=== PATIENT | male | born 1960 | race Caucasian/White ===

== ENCOUNTER 2018-02-27 13:28 | Inpatient (IN) ==
[~2018-02-27 13:28] MED LIST: Calcium Chloride Inj 1 GM/10 ML Syringe IV.PUSH ONE; DOPAMINE 400 MG/250 ML IV.CONT ONE; Norepinephrine Inj 4 MG/4 ML Ampul IV.CONT ONE; Sodium Bicarbonate 8.4% Inj 50 MEQ/50 ML Syringe IV.PUSH ONE
[2018-02-27] MEDS: Norepinephrine Inj 4 MG in Sodium Chlor 0.9% Inj 246 ML IV.SIG PRN ×2 (13:50→23:18)
[2018-02-27 14:09] LABS: Baso # (Auto) 0.1 th/mm3 (0.0-0.2); Baso % (Auto) 0.2 % (0.0-2.0); Eos # (Auto) 0.1 th/mm3 (0.0-0.4); Eos % (Auto) 0.5 % (0.0-4.0); Hematocrit 40.7 % (39.0-51.0); Hemoglobin 11.6 gm/dL (13.0-17.0); Lymph # (Auto) 9.2 th/mm3 (1.0-4.8); Lymph % (Auto) 30.2 % (9.0-44.0); Mean Corpuscular Hemoglobin 28.4 pg (27.0-34.0); Mean Corpuscular Volume 99.5 fL (80.0-100.0); Mono # (Auto) 0.5 th/mm3 (0.0-0.9); Mono % (Auto) 1.8 % (0.0-8.0); Neut # (Auto) 20.6 th/mm3 (1.8-7.7); Neut % (Auto) 67.3 % (16.0-70.0); Platelet Count 304 th/mm3 (150-450); Red Blood Count 4.09 mil/mm3 (4.50-5.90); Red Cell Distribution Width 19.2 % (11.6-17.2); White Blood Count 30.6 th/mm3 (4.0-11.0)
[2018-02-27 14:15] LABS: Mean Corpuscular HGB Conc 28.6 % (32.0-36.0)
[2018-02-27] MEDS ORDERED: Sod Chloride 0.9% Inj 1,000 ML IV.SIG SCH (14:15)
[2018-02-27] MEDS ORDERED: Vancomycin Inj 1 GM/200 ML PIGGYBACK IV.SIG ONE (14:15)
[2018-02-27] MEDS ORDERED: Piperacil/Tazo 4.5 GM Premix 4.5 GM/100 ML BAG IV.SIG ONE (14:15)
[2018-02-27 14:25] LABS: Activated Partial Thrombo Time 32.7 sec (24.3-30.1); INR 1.2 Ratio; Prothrombin Time 11.8 sec (9.8-11.6)
[2018-02-27 14:49] LABS: Lymphocytes 21 % (9-44); Metamyelocytes 3 % (0-1); Monocytes 1 % (0-8); Myelocytes 6 % (0-0); Tallied Nucleated RBC 1 (0-0)
[2018-02-27 14:51] LABS: Alanine Aminotransferase 908 U/L (12-78); Albumin 2.1 g/dL (3.4-5.0); Alkaline Phosphatase 199 U/L (45-117); Anion Gap 25 meq/L (5-15); Aspartate Aminotransferase 1555 U/L (15-37); Blood Urea Nitrogen 18 mg/dL (7-18); Calcium 8.7 mg/dL (8.5-10.1); Carbon Dioxide 17.8 meq/L (21.0-32.0); Chloride 103 meq/L (98-107); Creatine Kinase 132 U/L (39-308); Glomerular Filtration Rate 74 mL/min (>89); Glucose,Random 249 mg/dL (74-106); Lipase 176 U/L (73-393); Magnesium 2.5 mg/dL (1.5-2.5); Phosphorus 9.9 mg/dL (2.5-4.9); Sodium 146 meq/L (136-145); Total Protein 6.4 g/dL (6.4-8.2); Troponin I 0.27 ng/mL (0.02-0.05)
[2018-02-27 14:52] LABS: Potassium 4.9 meq/L (3.5-5.1)
[2018-02-27 14:57] LABS: Ovalocytes 1+; Platelet Estimate Normal (Normal); Platelet Morphology Normal (Normal); Spherocytes Occ
--- NOTE | 2018-02-27 14:58 | ED ---
HPI General Chief complaint: Cardiac Arrest/CPR Stated complaint: cardiac Time Seen by Provider: 02/27/18 14:12 Source: patient Mode of arrival: EMS Limitations: altered mental status History of Present Illness HPI narrative: Patient is a 57 year old male with history of quadriplegia, brought in by EMS in cardiac arrest. Patient has a tracheostomy tube in place. He is unresponsive, unable to provide history. EMS states he was [facility] the [facility]. Related Data Home Medications Medication Instructions Recorded Confirmed Unable to Obtain Home Meds 02/27/18 02/27/18 Allergies Allergy/AdvReac Type Severity Reaction Status Date / Time No Allergy Information Allergy Verified 02/27/18 14:07 Available Review of Systems ROS Unobtainable ROS Unobtainable: unobtainable due to mental condition PMFSH Medical History Medical History Anxiety (Acute) Dysphagia (Acute) Heartburn (Acute) Hypokalemia (Acute) Hypotension (Acute) Hypothyroidism (Acute) Osteomyelitis (Acute) Pneumonia (Acute) Pressure ulcer (Acute) Sepsis (Acute) Suprapubic catheter (Acute) Upper respiratory infection (Acute) Surgical History Surgical History History of colostomy (Acute) History of tracheostomy (Acute) PEG (percutaneous endoscopic gastrostomy) status (Acute) Social History Social History Smoking Status: Unknown if ever smoked How Often Do You Have a Drink Containing Alcohol: Unable to Obtain Recent Travel in [facility] within the Last 8 Weeks: No Recent Out of Country Travel within the Last 8 Weeks: No Exam Narrative Exam Narrative: GENERAL: Unresponsive SKIN: Large sacral decubitus ulcer HEAD: Atraumatic. Normocephalic. EYES: Pupils equal and round. No scleral icterus. ENT: No nasal bleeding or discharge. Mucous membranes pink and moist. NECK: Trachea midline. No JVD. CARDIOVASCULAR: Regular rate and rhythm. No murmur appreciated. RESPIRATORY: Breathing assisted through tracheostomy. Large amount of thick pus in mouth and tracheostomy tube. GASTROINTESTINAL: Abdomen soft, non-tender, nondistended. Colostomy present. MUSCULOSKELETAL: No obvious deformities. No clubbing. No cyanosis. No edema. NEUROLOGICAL: Unresponsive, does not move his extremities. Procedures Central Line Placement Right Femoral: Time Out Performed: Yes Patient Placed on Monitor/Pulse Ox: Yes Prep: mask and gloves Ultrasound Used for Placement: Yes Central Line Lumen Inserted: triple Post Procedure: sutured in place Patient Tolerated Procedure: no complications Course Initial Documented Vital Signs Pulse Rate 0 L 02/27/18 13:29 Last Documented Vital Signs Temperature 96.6 F L 02/27/18 15:20 Pulse Rate 75 02/27/18 17:00 Respiratory Rate 15 02/27/18 17:00 Blood Pressure 137/104 H 02/27/18 17:00 Pulse Oximetry 100 02/27/18 17:00 Critical Care Time Critical Care Time: Yes Total Critical Care Time: 40 Attestation: Aggregate critical care time was 40 minutes. Time to perform other separately billable procedures was not included in the critical care time. My time did not include minutes spent treating any other patients simultaneously or on activities that did not directly contribute to the patient's treatment. The services I provided to this patient were to treat and/or prevent clinically significant deterioration that could result in: Serious illness or I provided critical care services requiring my management, as noted below: Chart data review, documentation time, medication orders and management, vital sign assessments/reviewing monitor data, ordering and reviewing lab tests, ordering and interpreting/reviewing x-rays and diagnostic studies, care of the patient and discussion of the patient with the admitting physicians. Medical Decision Making MDM Narrative Medical decision making narrative: Patient is a 57 year old male who is brought in by EMS in cardiac arrest. Central line placed in right femoral vein. Large amount of thick secretions suctioned from the airway with improvement of O2 saturation. Given IVF, started on Levophed. Given Vancomycin and Zosyn. Patient has shock liver. WBC count 30. Lactic acid 16.4. CXR shows right sided pulmonary edema. Admitted for further manamgement. Medical Screen Exam Complete: Yes Emergency Medical Condition: Yes Differential Diagnosis Differential Diagnosis: Sepsis versus MS versus hypoxia versus UTI versus pneumonia Medical Records Medical records reviewed: Yes I reviewed the patient's medical records. Lab Data Lab results reviewed: Yes I reviewed the patient's lab results. Result diagrams: 02/27/18 13:44 02/27/18 13:44 Lab Results 02/27/18 02/27/18 02/27/18 Range/Units 13:44 13:44 13:44 WBC 30.6 H (4.0-11.0) th/mm3 RBC 4.09 L (4.50-5.90) mil/mm3 Hgb 11.6 L (13.0-17.0) gm/dL Hct 40.7 (39.0-51.0) % MCV 99.5 (80.0-100.0) fL MCH 28.4 (27.0-34.0) pg MCHC 28.6 L (32.0-36.0) % RDW 19.2 H (11.6-17.2) % Plt Count 304 (150-450) th/mm3 MPV 8.0 (7.0-11.0) fL Prelim Diff (Auto) Slide review pending Neut % (Auto) 67.3 (16.0-70.0) % Lymph % (Auto) 30.2 (9.0-44.0) % Harvey % (Auto) 1.8 (0.0-8.0) % Eos % (Auto) 0.5 (0.0-4.0) % Baso % (Auto) 0.2 (0.0-2.0) % Neut # (Auto) 20.6 H (1.8-7.7) th/mm3 Lymph # (Auto) 9.2 H (1.0-4.8) th/mm3 Harvey # (Auto) 0.5 (0.0-0.9) th/mm3 Eos # (Auto) 0.1 (0.0-0.4) th/mm3 Baso # (Auto) 0.1 (0.0-0.2) th/mm3 WBC Differential Manual diff final Seg Neuts % (Manual) 57 (16-70) % Band Neuts % (Manual) 12 H (0-6) % Lymphocytes % (Manual) 21 (9-44) % Monocytes % (Manual) 1 (0-8) % Metamyelocytes % (Man) 3 H (0-1) % Myelocytes % (Man) 6 H (0-0) % Abs Neuts (Manual) 23.9 H (1.8-7.7) th/mm3 Nucleated RBCs/100 WBC 1 H (0-0) /100 WBC Differential Comment . Platelet Estimate Normal (Normal) Platelet Morphology Normal (Normal) Spherocytes Occ H (None) Ovalocytes 1+ H (None) PT 11.8 H (9.8-11.6) sec INR 1.2 Ratio APTT 32.7 H (24.3-30.1) sec Patient Temperature O2 Saturation (90-100) % ABG pH (7.380-7.420) ABG pCO2 (38-42) mmHg ABG pO2 (61-120) mmHg ABG HCO3 (22-26) mmol/L ABG O2 Content (12.0-20.0) Vol % ABG Base Excess (-2-2) mmol/L ABG Methemoglobin (0-2) % Hemoglobin (12.0-16.0) G/DL Carboxyhemoglobin (0-4) % O2 Delivery Device Vent Setting Inspired O2 % Critical Value Sodium 146 H (136-145) meq/L Potassium 4.9 (3.5-5.1) meq/L Chloride 103 (98-107) meq/L Carbon Dioxide 17.8 L (21.0-32.0) meq/L Anion Gap 25 H (5-15) meq/L BUN 18 (7-18) mg/dL Creatinine 1.03 (0.60-1.30) mg/dL Estimated GFR 74 L (>89) mL/min POC Glucose (68-110) mg/dl Random Glucose 249 H (74-106) mg/dL Lactic Acid (0.4-2.0) mmol/L Calcium 8.7 (8.5-10.1) mg/dL Phosphorus 9.9 H (2.5-4.9) mg/dL Magnesium 2.5 (1.5-2.5) mg/dL Total Bilirubin 0.5 (0.2-1.0) mg/dL AST 1555 H (15-37) U/L ALT 908 H (12-78) U/L Alkaline Phosphatase 199 H (45-117) U/L Total Creatine Kinase 132 (39-308) U/L CK-MB (CK-2) 3.8 H (0.5-3.6) ng/mL Troponin I 0.27 H (0.02-0.05) ng/mL Total Protein 6.4 (6.4-8.2) g/dL Albumin 2.1 L (3.4-5.0) g/dL Lipase 176 (73-393) U/L Urine Color (Yellw/Straw) Urine Clarity (Clear) Urine pH (5.0-8.5) Ur Specific [place] (1.002-1.035) Urine Protein (Neg-Trace) mg/dL Urine Glucose (UA) (Negative) mg/dL Urine Ketones (Negative) mg/dL Urine Occult Blood (Negative) Urine Nitrate (Negative) Urine Bilirubin (Negative) Urine Urobilinogen (Less than 2) mg/dL Ur Leukocyte Esterase (Negative) Urine RBC (0-3) /hpf Urine WBC (0-5) /hpf Urine WBC Clumps (None) Ur Squamous Epith Cells (0-5) /hpf Urine Bacteria (None) /hpf Hyaline Casts (0-3) /lpf Urine Mucus (Occasional) /lpf 02/27/18 02/27/18 02/27/18 Range/Units 13:57 14:23 16:55 WBC (4.0-11.0) th/mm3 RBC (4.50-5.90) mil/mm3 Hgb (13.0-17.0) gm/dL Hct (39.0-51.0) % MCV (80.0-100.0) fL MCH (27.0-34.0) pg MCHC (32.0-36.0) % RDW (11.6-17.2) % Plt Count (150-450) th/mm3 MPV (7.0-11.0) fL Prelim Diff (Auto) Neut % (Auto) (16.0-70.0) % Lymph % (Auto) (9.0-44.0) % Harvey % (Auto) (0.0-8.0) % Eos % (Auto) (0.0-4.0) % Baso % (Auto) (0.0-2.0) % Neut # (Auto) (1.8-7.7) th/mm3 Lymph # (Auto) (1.0-4.8) th/mm3 Harvey # (Auto) (0.0-0.9) th/mm3 Eos # (Auto) (0.0-0.4) th/mm3 Baso # (Auto) (0.0-0.2) th/mm3 WBC Differential Seg Neuts % (Manual) (16-70) % Band Neuts % (Manual) (0-6) % Lymphocytes % (Manual) (9-44) % Monocytes % (Manual) (0-8) % Metamyelocytes % (Man) (0-1) % Myelocytes % (Man) (0-0) % Abs Neuts (Manual) (1.8-7.7) th/mm3 Nucleated RBCs/100 WBC (0-0) /100 WBC Differential Comment Platelet Estimate (Normal) Platelet Morphology (Normal) Spherocytes (None) Ovalocytes (None) PT (9.8-11.6) sec INR Ratio APTT (24.3-30.1) sec Patient Temperature O2 Saturation (90-100) % ABG pH (7.380-7.420) ABG pCO2 (38-42) mmHg ABG pO2 (61-120) mmHg ABG HCO3 (22-26) mmol/L ABG O2 Content (12.0-20.0) Vol % ABG Base Excess (-2-2) mmol/L ABG Methemoglobin (0-2) % Hemoglobin (12.0-16.0) G/DL Carboxyhemoglobin (0-4) % O2 Delivery Device Vent Setting Inspired O2 % Critical Value Sodium (136-145) meq/L Potassium (3.5-5.1) meq/L Chloride (98-107) meq/L Carbon Dioxide (21.0-32.0) meq/L Anion Gap (5-15) meq/L BUN (7-18) mg/dL Creatinine (0.60-1.30) mg/dL Estimated GFR (>89) mL/min POC Glucose 256 H (68-110) mg/dl Random Glucose (74-106) mg/dL Lactic Acid 16.4 H* (0.4-2.0) mmol/L Calcium (8.5-10.1) mg/dL Phosphorus (2.5-4.9) mg/dL Magnesium (1.5-2.5) mg/dL Total Bilirubin (0.2-1.0) mg/dL AST (15-37) U/L ALT (12-78) U/L Alkaline Phosphatase (45-117) U/L Total Creatine Kinase (39-308) U/L CK-MB (CK-2) (0.5-3.6) ng/mL Troponin I (0.02-0.05) ng/mL Total Protein (6.4-8.2) g/dL Albumin (3.4-5.0) g/dL Lipase (73-393) U/L Urine Color [place] H (Yellw/Straw) Urine Clarity Cloudy H (Clear) Urine pH 7.5 (5.0-8.5) Ur Specific [place] 1.010 (1.002-1.035) Urine Protein 300 or greater H (Neg-Trace) mg/dL Urine Glucose (UA) Negative (Negative) mg/dL Urine Ketones Negative (Negative) mg/dL Urine Occult Blood Large H (Negative) Urine Nitrate Positive H (Negative) Urine Bilirubin Negative (Negative) Urine Urobilinogen 0.2 (Less than 2) mg/dL Ur Leukocyte Esterase Large H (Negative) Urine RBC (0-3) /hpf Urine WBC (0-5) /hpf Urine WBC Clumps Many H (None) Ur Squamous Epith Cells 148 (0-5) /hpf Urine Bacteria Many H (None) /hpf Hyaline Casts 116 (0-3) /lpf Urine Mucus Many H (Occasional) /lpf 02/27/18 Range/Units 17:07 WBC (4.0-11.0) th/mm3 RBC (4.50-5.90) mil/mm3 Hgb (13.0-17.0) gm/dL Hct (39.0-51.0) % MCV (80.0-100.0) fL MCH (27.0-34.0) pg MCHC (32.0-36.0) % RDW (11.6-17.2) % Plt Count (150-450) th/mm3 MPV (7.0-11.0) fL Prelim Diff (Auto) Neut % (Auto) (16.0-70.0) % Lymph % (Auto) (9.0-44.0) % Harvey % (Auto) (0.0-8.0) % Eos % (Auto) (0.0-4.0) % Baso % (Auto) (0.0-2.0) % Neut # (Auto) (1.8-7.7) th/mm3 Lymph # (Auto) (1.0-4.8) th/mm3 Harvey # (Auto) (0.0-0.9) th/mm3 Eos # (Auto) (0.0-0.4) th/mm3 Baso # (Auto) (0.0-0.2) th/mm3 WBC Differential Seg Neuts % (Manual) (16-70) % Band Neuts % (Manual) (0-6) % Lymphocytes % (Manual) (9-44) % Monocytes % (Manual) (0-8) % Metamyelocytes % (Man) (0-1) % Myelocytes % (Man) (0-0) % Abs Neuts (Manual) (1.8-7.7) th/mm3 Nucleated RBCs/100 WBC (0-0) /100 WBC Differential Comment Platelet Estimate (Normal) Platelet Morphology (Normal) Spherocytes (None) Ovalocytes (None) PT (9.8-11.6) sec INR Ratio APTT (24.3-30.1) sec Patient Temperature 98.6 O2 Saturation 98 (90-100) % ABG pH 7.24 L* (7.380-7.420) ABG pCO2 52 H* (38-42) mmHg ABG pO2 439 H (61-120) mmHg ABG HCO3 21 L (22-26) mmol/L ABG O2 Content 18.7 (12.0-20.0) Vol % ABG Base Excess -4.9 L (-2-2) mmol/L ABG Methemoglobin 0.6 (0-2) % Hemoglobin 12.8 (12.0-16.0) G/DL Carboxyhemoglobin 1.6 (0-4) % O2 Delivery Device Vent Vent Setting Ac/15/500/10/100 Inspired O2 100 % Critical Value Yes Sodium (136-145) meq/L Potassium (3.5-5.1) meq/L Chloride (98-107) meq/L Carbon Dioxide (21.0-32.0) meq/L Anion Gap (5-15) meq/L BUN (7-18) mg/dL Creatinine (0.60-1.30) mg/dL Estimated GFR (>89) mL/min POC Glucose (68-110) mg/dl Random Glucose (74-106) mg/dL Lactic Acid (0.4-2.0) mmol/L Calcium (8.5-10.1) mg/dL Phosphorus (2.5-4.9) mg/dL Magnesium (1.5-2.5) mg/dL Total Bilirubin (0.2-1.0) mg/dL AST (15-37) U/L ALT (12-78) U/L Alkaline Phosphatase (45-117) U/L Total Creatine Kinase (39-308) U/L CK-MB (CK-2) (0.5-3.6) ng/mL Troponin I (0.02-0.05) ng/mL Total Protein (6.4-8.2) g/dL Albumin (3.4-5.0) g/dL Lipase (73-393) U/L Urine Color (Yellw/Straw) Urine Clarity (Clear) Urine pH (5.0-8.5) Ur Specific [place] (1.002-1.035) Urine Protein (Neg-Trace) mg/dL Urine Glucose (UA) (Negative) mg/dL Urine Ketones (Negative) mg/dL Urine Occult Blood (Negative) Urine Nitrate (Negative) Urine Bilirubin (Negative) Urine Urobilinogen (Less than 2) mg/dL Ur Leukocyte Esterase (Negative) Urine RBC (0-3) /hpf Urine WBC (0-5) /hpf Urine WBC Clumps (None) Ur Squamous Epith Cells (0-5) /hpf Urine Bacteria (None) /hpf Hyaline Casts (0-3) /lpf Urine Mucus (Occasional) /lpf Imaging Data Radiologist's impression: Chest X-Ray 02/27/18 13:43 CONCLUSION: Possible pulmonary edema. Discharge Plan Discharge Disposition Patient Disposition: 30 Still Patient Discharge Condition Condition: Critical Discharge Details Diagnosis: Cardiac arrest, Acute respiratory failure, Sepsis Physicians Team ED Provider: Rae Fischer Primary Care Provider: Deric Varela Attending Provider: Arturo Mariano Other Providers: Crystal Chanel Status ED Status: Admitted Patient
[2018-02-27] MEDS ORDERED: Vancomycin Inj 1,000 MG in Sodium Chlor 0.9% Inj 250 ML IV.SIG ONE (15:00)
--- NOTE | 2018-02-27 15:02 | XR ---
EXAM DATE: 02/27/2018 2:57 PM EDT AGE/SEX: 57 years / Male INDICATIONS: Fever. CLINICAL DATA: This is the patient's initial encounter. Patient reports that signs and symptoms have been present for 1 day and indicates a pain score of Nonresponsive. MEDICAL/SURGICAL HISTORY: Non-responsive. Non-responsive. COMPARISON: No prior exams available for comparison. FINDINGS: Tracheostomy tube is present in satisfactory position. Left IJ [id number] is present with tip over lapping the expected region of the SVC. Hazy opacity is seen diffusely involving the right lung may represent pulmonary edema. The left lung is grossly clear. Slight prominence of the mediastinal shado w may be technical. CONCLUSION: Possible pulmonary edema. Electronically signed by: Klever Scanlon MD 02/27/2018 3:00 PM EDT
[2018-02-27 15:06] LABS: Creatine Kinase MB 3.8 ng/mL (0.5-3.6)
[2018-02-27] MEDS ORDERED: Vancomycin Consult Pharmacy OTHER PRN (17:09)
[2018-02-27 17:20] LABS: ABG Base Excess -4.9 mmol/L (-2-2); ABG PCO2 52 mmHg (38-42); ABG PO2 439 mmHg (61-120)
[2018-02-27] MEDS ORDERED: Magnesium Oxide 400 MG Tablet PO PRN (17:27)
[2018-02-27] MEDS ORDERED: Potassium Phosphate Inj 30 MMOL in Sodium Chlor 0.9% Inj 250 ML IV.SIG PRN (17:27)
[2018-02-27] MEDS ORDERED: Potassium Chlor 40 mEq Premix 40 MEQ/100 ML PIGGYBACK IV.SIG PRN (17:27)
[2018-02-27] MEDS ORDERED: Potassium Phosphate 500 MG Soluble Tablet PO PRN ×2 (17:27)
[2018-02-27] MEDS ORDERED: Potassium Chloride 25 MEQ Effervescent Tablet PO PRN (17:27)
[2018-02-27] MEDS ORDERED: Magnesium Sulfate Inj 4 GM in Sodium Chlor 0.9% Inj 92 ML IV.SIG PRN (17:27)
[2018-02-27] MEDS ORDERED: Potassium Chlor 20 mEq Premix 20 MEQ/100 ML PIGGYBACK IV.SIG PRN ×2 (17:27)
[2018-02-27] MEDS ORDERED: Sodium Phosphate Inj 30 MMOL in Sodium Chlor 0.9% Inj 250 ML IV.SIG PRN (17:27)
[2018-02-27] MEDS ORDERED: Magnesium Sulfate Inj 2 GM in Sodium Chlor 0.9% Inj 96 ML IV.SIG PRN (17:27)
--- NOTE | 2018-02-27 17:30 | P.HPCC ---
History of Present Illness Service: Critical Care Medicine Primary Care Physician: Deric Varela DO History of Present Illness: This is a 57-year-old male with a history of C4 quadriplegia who sustained out of hospital cardiac arrest in his longterm facility. ROSC was obtained and he was brought in where he had a second cardiac arrest when he arrived in the emergency department. Again ROSC was obtained. Patient received no sedating medication and no neuromuscular blockade, and in the emergency department his pupils are fixed and dilated he see his unresponsive. Initially he was on norepinephrine for shock, but is now off his medication. He has a lactate of 16. He has a white count of 30,000. He has evidence of shock liver , acute kidney injury. He has significant pyuria. He also has significant unstageable/stage IV decubitus ulcer on his sacrum. He has significant purulent secretions in his tracheostomy tube. We have tried multiple times to reach his daughter and medical decision maker, but neither of us nor his longterm facility have been able to reach her. No additional information is available from the patient. Review systems is unobtainable. Inpatient Certification: I certify that the inpatient services were ordered in accordance with Medicare regulations governing the order. This includes certification that hospital inpatient services are reasonable and necessary and in the case of services not specified as inpatient-only under 42 CFR 419.22(n), that they are appropriately provided as inpatient services in accordance to with the 2-midnight benchmark under 43 CFR 412.3(e) Estimated Total Length of Stay (Days): 7 Plans for Post Hospital Care: Not yet determined Review of Systems unobtainable due to mental condition, unobtainable due to mental status PMFSH - History History Provided By: Medical Record - Medical / Surgical Hx Neg / Unobtainable Medical Problems Denied: Unable to Obtain Surgical History: Unable to Obtain - Medical History Medical History: Medical History (Last Reviewed 02/27/18 @ 17:17 by Rae Fischer MD) Anxiety Dysphagia Heartburn Hypokalemia Hypotension Hypothyroidism Osteomyelitis Pneumonia Pressure ulcer Sepsis Suprapubic catheter Upper respiratory infection - Surgical History Surgical History: Surgical History (Last Reviewed 02/27/18 @ 17:17 by Rae Fischer MD) History of colostomy History of tracheostomy PEG (percutaneous endoscopic gastrostomy) status - Tobacco History Smoking Status: Unknown if ever smoked - Alcohol History How Often Do You Have a Drink Containing Alcohol: Unable to Obtain - Travel History Recent Travel in the [place] Within the Last 8 Weeks: No Recent Travel Out of the Country Within the Last 8 Weeks: No - Immunization History Tetanus Immunization: Unsure Hx Influenza Vaccine This Season: Unable to Assess Medications and Allergies Active Medications: Active Medications Albuterol (Duoneb Neb (Prn)) 1 ampul NEB Q2HR NEB PRN PRN Reason: WHEEZING Albuterol (Duoneb Neb (Eduardo)) 1 ampul NEB Q6HR NEB EDUARDO Chlorhexidine Gluconate (Peridex 0.12% Oral Kit) 15 ml OROPHARYNG BID@0800, 2000 EDUARDO Chlorhexidine Gluconate (Chlorhexidine 2% Cloth) 3 pack TOPICAL DAILY@0400 EDUARDO Stop: 03/05/18 03:59 Chlorhexidine Gluconate (Chlorhexidine 2% Cloth) 3 pack TOPICAL DAILY@0400 PRN PRN Reason: Extra cloth needed Stop: 03/05/18 03:59 Famotidine (Pepcid Pf Inj) 20 mg IV.PUSH Q12HR EDUARDO Norepinephrine Bitartrate 4 mg (/ Sodium Chloride) 250 mls @ 7.5 mls/hr IV.SIG TITRATE PRN; Protocol PRN Reason: Per Protocol Last Titration: 02/27/18 16:00 Dose: 8 mcg/min, 30 mls/hr Sodium Chloride (Ns Inj) 1,000 mls @ 0 mls/hr IV.SIG BOLUS EDUARDO Last Admin: 02/27/18 15:18 Dose: 1,000 mls/hr Piperacillin/Tazobactam/Dextrose (Zosyn 4.5 Gm Premix) 4.5 gm in 100 mls @ 200 mls/hr IV.SIG Q6H EDUARDO Magnesium Sulfate Inj 2 gm/ (Sodium Chloride) 100 mls @ 50 mls/hr IV.SIG UNSCH PRN PRN Reason: For Magnesium 1.2 - 1.6 mg/dL Potassium Chloride (Kcl 40 Meq Premix Inj) 40 meq in 100 mls @ 25 mls/hr IV.SIG Q2H PRN PRN Reason: For Potassium 2.8 - 3.2 mEq/L Potassium Chloride (Kcl 20 Meq Premix Inj) 20 meq in 100 mls @ 50 mls/hr IV.SIG Q2H PRN PRN Reason: For Potassium 3.3 - 3.5 mEq/L Potassium Chloride (Kcl 40 Meq Premix Inj) 40 meq in 100 mls @ 25 mls/hr IV.SIG UNSCH PRN PRN Reason: For Potassium 3.3 - 3.5 mEq/L Potassium Phosphate 30 mmol/ (Sodium Chloride) 260 mls @ 42 mls/hr IV.SIG UNSCH PRN PRN Reason: SEE LABEL COMMENTS Sodium Phosphate 30 mmol/ (Sodium Chloride) 260 mls @ 42 mls/hr IV.SIG UNSCH PRN PRN Reason: For Phosphorus < 2.5 mg/dL Magnesium Sulfate Inj 4 gm/ (Sodium Chloride) 100 mls @ 50 mls/hr IV.SIG UNSCH PRN PRN Reason: For Magnesium 0.9 - 1.1 mg/dL Potassium Chloride (Kcl 20 Meq Premix Inj) 20 meq in 100 mls @ 50 mls/hr IV.SIG Q2H PRN PRN Reason: For Potassium 2.8 - 3.2 mEq/L Magnesium Oxide (Mag-Ox) 800 mg PO UNSCH PRN PRN Reason: For Magnesium 1.2 - 1.6 mg/dL Ondansetron HCl (Zofran Inj) 4 mg IV.PUSH Q6H PRN PRN Reason: NAUSEA OR VOMITING Pharmacy Profile Note (Vancomycin Consult Pharmacy) 1 each OTHER UNSCH PRN PRN Reason: Pharmacy to dose Potassium Bicarb/Potassium Chloride (K-Lyte Cl Eff) 50 meq PO UNSCH PRN PRN Reason: For Potassium 3.3 - 3.5 mEq/L Potassium Phosphate (K-Phos Original) 2,000 mg PO Q4H PRN PRN Reason: Phosphorus Less Than 2.5 mg/dL Potassium Phosphate (K-Phos Original) 2,000 mg PO UNSCH PRN PRN Reason: SEE LABEL COMMENTS Sodium Chloride (Ns Flush) 2 ml IV.FLUSH UNSCH PRN PRN Reason: FLUSH AFTER USING IV ACCESS Terbutaline Sulfate (Brethine Inj) 1 mg SQ UNSCH PRN PRN Reason: For Extravasation Allergies Allergy/AdvReac Type Severity Reaction Status Date / Time No Allergy Information Allergy Verified 02/27/18 14:07 Available Home Medications Medication Instructions Recorded Confirmed Type Unable to Obtain Home Meds 02/27/18 02/27/18 History Results - Labs CBC & Chem 7: 02/27/18 13:44 02/27/18 13:44 Labs: Short CBC 02/27/18 Range/Units 13:44 WBC 30.6 H (4.0-11.0) th/mm3 Hgb 11.6 L (13.0-17.0) gm/dL Hct 40.7 (39.0-51.0) % Plt Count 304 (150-450) th/mm3 BMP 02/27/18 13:44 Sodium 146 H Potassium 4.9 Chloride 103 Carbon Dioxide 17.8 L BUN 18 Creatinine 1.03 Calcium 8.7 Cardiac Enzymes 02/27/18 Range/Units 13:44 Total Creatine Kinase 132 (39-308) U/L CK-MB (CK-2) 3.8 H (0.5-3.6) ng/mL Troponin I 0.27 H (0.02-0.05) ng/mL Liver Function 02/27/18 Range/Units 13:44 Total Bilirubin 0.5 (0.2-1.0) mg/dL AST 1555 H (15-37) U/L ALT 908 H (12-78) U/L Alkaline Phosphatase 199 H (45-117) U/L Albumin 2.1 L (3.4-5.0) g/dL - Imaging Impressions Chest X-Ray 02/27/18 13:43 CONCLUSION: Possible pulmonary edema. Exam Vital signs: Vital Signs 02/27/18 13:29 02/27/18 13:33 02/27/18 13:45 Temperature Pulse Rate 0 L 64 53 L Respiratory Rate Blood Pressure 92/40 L Pulse Oximetry 98 02/27/18 13:48 02/27/18 13:58 02/27/18 14:00 Temperature Pulse Rate 53 L 52 L 50 L Respiratory Rate 20 24 Blood Pressure 92/46 L 105/55 L 108/51 L Pulse Oximetry 100 100 02/27/18 14:15 02/27/18 14:20 02/27/18 14:41 Temperature Pulse Rate 48 L 65 68 Respiratory Rate 16 14 15 Blood Pressure 111/54 L 101/50 L 111/56 L Pulse Oximetry 98 100 100 02/27/18 15:20 02/27/18 15:30 02/27/18 15:45 Temperature 35.9 C L Pulse Rate 70 70 75 Respiratory Rate 16 15 15 Blood Pressure 120/74 129/69 150/70 H Pulse Oximetry 100 100 100 02/27/18 16:00 02/27/18 17:00 Temperature Pulse Rate 75 75 Respiratory Rate 15 15 Blood Pressure 137/79 137/104 H Pulse Oximetry 100 100 Intake & Output 02/26/18 02/27/18 02/27/18 18:59 06:59 18:59 Intake Total 100 / 100 Balance 100 / 100 Weight 65.029 kg Intake: IV 100 / 100 Zosyn 4.5 GM Premix 4.5 gm In 100 / 100 100 ml @ 200 mls/hr IV.SIG ONCE ONE Rx#:[id number] Narrative: GENERAL: Frail and cachectic middle-aged appearing male with contractures of both upper and lower extremities, lying in bed, unresponsive. HEENT: Normocephalic. Atraumatic. Pupils 5 mm, bilaterally equal, fixed, dilated, nonreactive. Mucous membranes are moist NECK: Trachea is midline. There is no JVD. There is a tracheostomy tube in place. CHEST: PRVC mode of ventilation. Equal chest rise. Significant thickened purulent appearing secretions. CARDIOVASCULAR: Tachycardic rate, regular rhythm. Appears sinus by telemetry. ABDOMEN: Soft, nontender, nondistended. No guarding. PEG tube in place. Suprapubic catheter in place. Purulent drainage out of suprapubic catheter drainage bag. MUSCULOSKELETAL: Pulses 2+. No peripheral edema. Contractures of all extremities. NEUROLOGICAL: GCS 3. RASS -5. Pupils as above. Negative cough. Negative gag. Negative corneals. Septic Shock Reassessment Septic shock perfusion: reassessment completed Caprini VTE Risk Assessment Caprini VTE Risk Assessment: Moderate/High Risk (score >= 2) Caprini Risk Assessment Model: Point Value = 1 Point Value = 2 Point Value = 3 Point Value = 5 Age 41-60 Minor surgery BMI > 25 kg/m2 Swollen legs Varicose veins or History of unexplained or recurrent spontaneous Oral contraceptives or hormone replacement Sepsis (< 1 month) Serious lung disease, including pneumonia (< 1 month) Abnormal pulmonary function Acute myocardial infarction Congestive heart failure (< 1 month) History of inflammatory bowel disease Medical patient at bed rest Age 61-74 Arthroscopic surgery Major open surgery (> 45 min) Laparoscopic surgery (> 45 min) Malignancy Confined to bed (> 72 hours) Immobilizing plaster cast Central venous access Age >= 75 History of VTE Family history of VTE Factor V Leiden Prothrombin [id number] Lupus anticoagulant Anticardiolipin antibodies Elevated serum homocysteine Heparin-induced thrombocytopenia Other congenital or acquired thrombophilia Stroke (< 1 month) Elective arthroplasty Hip, pelvis, or leg fracture Acute spinal cord injury (< 1 month) Prophylaxis Regimen: Total Risk Factor Score Risk Level Prophylaxis Regimen 0-1 Low Early ambulation 2 Moderate Order ONE of the following: *Sequential Compression Device (SCD) *Heparin 5000 units SQ BID 3-4 Higher Order ONE of the following medications: *Heparin 5000 units SQ TID *Enoxaparin/Lovenox 40 mg SQ daily (WT < 150 kg, CrCl > 30 mL/min) *Enoxaparin/Lovenox 30 mg SQ daily (WT < 150 kg, CrCl > 10-29 mL/min) *Enoxaparin/Lovenox 30 mg SQ BID (WT < 150 kg, CrCl > 30 mL/min) AND/OR *Sequential Compression Device (SCD) 5 or more Highest Order ONE of the following medications: *Heparin 5000 units SQ TID (Preferred with Epidurals) *Enoxaparin/Lovenox 40 mg SQ daily (WT < 150 kg, CrCl > 30 mL/min) *Enoxaparin/Lovenox 30 mg SQ daily (WT < 150 kg, CrCl > 10-29 mL/min) *Enoxaparin/Lovenox 30 mg SQ BID (WT < 150 kg, CrCl > 30 mL/min) AND *Sequential Compression Device (SCD) Assessment and Plan - Assessment and Plan Plan: Assessment: 57-year-old male with prior C4 quadriplegia who presents out of prolonged out of hospital cardiac arrest with no likely anoxic brain injury. Given the patient's multiple acute and chronic medical problems, combined with the fact the patient clinically appears quite septic and the patient had a significantly prolonged downtime, induced hypothermia is relatively contraindicated and I do not think it will improve the patient's overall survivability or neurologic improvement, and certainly comes with significant risk of worsening his comorbid organ failure and hemodynamics. We have tried unsuccessfully to reach his medical decision makers and family. We will continue trying, but the interim he will remain a full code. We will obtain noncontrast head CT as well as CT chest abdomen pelvis to evaluate for an etiology of his cardiac arrest, however at present it appears that septic shock from either pulmonary, urine, or multiple wound infection sources could be a clinical source of his septic shock. He remains very critically ill and given his presentation, unlikely to survive or have a meaningful recovery. I have consulted palliative care to have their team assist in our ongoing search contact family as well as goals of care discussion. Plan by systems: Neurologic: Anoxic brain injury Hypoxic ischemic encephalopathy Prior C4 quadriplegia Frequent neurochecks Avoid long-acting sedatives Stat CT head Hold any blood thinners until after CT head Respiratory: Acute hypoxic and hypercarbic respiratory failure Chronic tracheostomy Vent bundle Head of bed elevated Wean FiO2 for goal SPO2 greater than 90% No weaning of mechanical ventilation until neurologic exam improves Nebs Send sputum sample Antibiotics as below Cardiovascular: Out of hospital cardiac arrest Elevated troponins Septic shock Trend troponins Levophed for goal map greater than 65 Likely type II NSTEMI secondary to demand ischemia and from direct myocardial injury from CPR. Unlikely to be acute coronary syndrome Given the multifactorial etiology of cardiac arrest and current organ failure as well as prolonged downtime, not a candidate for hypothermia protocol Renal: Acute kidney injury Unknown baseline Suprapubic catheter in place Trend renal function on daily BMP -- Strict I/Os FEN/GI: Severe acute protein calorie malnutrition Shock liver Acute intravascular volume depletion N.p.o. while in shock Daily CMP Trend LFTs Maintenance fluids Heme/ID: Septic shock Likely sources could include: Healthcare associated pneumonia, healthcare associated urinary tract infection with indwelling suprapubic catheter, multiple wound infections including significant stage IV/unstageable decubitus ulcer on the sacrum Vancomycin with pharmacy dosing Zosyn Panculture CT chest, abdomen, pelvis with IV contrast further evaluate for source Endocrine: -- SSI Prophylaxis: GI Prophylaxis Pepcid DVT Prophylaxis -- SCDs Hold pharmacologic DVT prophylaxis until noncontrasted head CT Lines: 02/27 right femoral triple-lumen catheter placed in the emergency department. Dispo: Admit ICU. Critically ill. Very poor prognosis overall. This patient remains critically ill with one or more organ systems which are or may become a threat to life. I have spent in excess of 57 minutes discontinuously in the care and management of this patient. This time is exclusive of procedures, and includes, but is not limited to, evaluation of the patient, review of the medical record, discussions with family, consultants, nursing staff, or respiratory therapy, and documentation in the medical record.
[2018-02-27 17:59] LABS: Bacteria,Urine Many /hpf; Hyaline Casts,Urine 116 /lpf (0-3); Mucus,Urine Many /lpf (Occasional); Squamous Epithelial Cell,Urine 148 /hpf (0-5)
[2018-02-27 18:19] LABS: Clarity,Urine Cloudy (Clear); PH,Urine 7.5 (5.0-8.5)
[2018-02-27 18:20] LABS: Bilirubin,Urine Negative (Negative); Glucose,Urine (UA) Negative (Negative); Leukocyte Esterase,Urine Large (Negative); Nitrite,Urine Positive (Negative); Urobilinogen,Urine 0.2 mg/dL (Less than 2)
[2018-02-27 18:21] LABS: Color,Urine Pink (Yellw/Straw)
--- NOTE | 2018-02-27 20:17 | CT ---
EXAM DATE: 02/27/2018 8:04 PM EDT AGE/SEX: 57 years / Male INDICATIONS: Altered mental status. CLINICAL DATA: This is the patient's initial encounter. Patient reports that signs and symptoms have been present for 1 day and indicates a pain score of Nonresponsive. MEDICAL/SURGICAL HISTORY: Non-responsive. Colostomy. RADIATION DOSE: 64.63 CTDI (mGy) COMPARISON: No prior exams available for comparison. TECHNIQUE: CT of the head without contrast. Using automated exposure control and adjustment of the mA and/or kV according to patient size, radiation dose was kept as low as reasonably achievable to ob tain optimal diagnostic quality images. DICOM format image data is available electronically for revi ew and comparison. FINDINGS: The examination is very abnormal. There is subarachnoid hemorrhage extending from perimesencephalic c isterns down towards the prepeduncular cistern and cephaladly to bilateral temporal lobes. There is e xtensive cerebral swelling diffusely with loss of kendrick-white differentiation characteristic of diffus e axonal injury or possibly diffuse extensive anoxic insult to the brain. The perimesencephalic ciste rns are obliterated and there is significant mass effect on the ventricles indicating downward transt entorial herniation. CONCLUSION: 1. Very abnormal exam with subarachnoid hemorrhage extensive cerebral swelling and downward transten torial herniation possibility of extensive anoxic insult to the brain or diffuse axonal injury should both be entertained. Findings were discussed with Dr. Mariano at the time of this dictation. . Electronically signed by: Klever Scanlon MD 02/27/2018 8:16 PM EDT
[2018-02-27] MEDS: Piperacil/Tazo 4.5 GM Premix 4.5 GM/100 ML BAG IV.SIG SCH (21:47)
[2018-02-27] MEDS: Famotidine PF Inj 20 MG/2 ML Vial IV.PUSH SCH (21:47)
[2018-02-27] MEDS: Chlorhexidine 0.12% Oral Kit 15 ML UDC OROPHARYNG SCH (21:47)
[2018-02-28] MEDS: Oral Hygiene Kit OROPHARYNG SCH ×4 (00:04→16:51)
[2018-02-28] MEDS: Piperacil/Tazo 4.5 GM Premix 4.5 GM/100 ML BAG IV.SIG SCH ×2 (02:45→08:37)
[2018-02-28] MEDS: Chlorhexidine Gluconate 2% 1 Pack (2 Cloths) TOPICAL SCH (03:19)
[2018-02-28] MEDS ORDERED: Vancomycin Inj 750 MG in Sodium Chlor 0.9% Inj 250 ML IV.SIG SCH (04:00)
[2018-02-28] MEDS ORDERED: Chlorhexidine Gluconate 2% 1 Pack (2 Cloths) TOPICAL PRN (04:00)
[2018-02-28 05:07] LABS: Alanine Aminotransferase 978 U/L (12-78); Albumin 2.2 g/dL (3.4-5.0); Alkaline Phosphatase 163 U/L (45-117); Anion Gap 13 meq/L (5-15); Aspartate Aminotransferase 883 U/L (15-37); Blood Urea Nitrogen 27 mg/dL (7-18); Calcium 8.3 mg/dL (8.5-10.1); Carbon Dioxide 28.5 meq/L (21.0-32.0); Chloride 109 meq/L (98-107); Glomerular Filtration Rate Greater Than 89 mL/min (>89); Glucose,Random 147 mg/dL (74-106); Magnesium 1.7 mg/dL (1.5-2.5); Phosphorus 2.4 mg/dL (2.5-4.9); Potassium 3.2 meq/L (3.5-5.1); Sodium 150 meq/L (136-145); Total Protein 6.2 g/dL (6.4-8.2)
[2018-02-28 05:15] LABS: Troponin I 6.12 ng/mL (0.02-0.05)
--- NOTE | 2018-02-28 05:58 | XR ---
EXAM DATE: 02/28/2018 5:48 AM EDT AGE/SEX: 57 years / Male INDICATIONS: Shortness of breath. CLINICAL DATA: This is the patient's subsequent encounter. Patient reports that signs and symptoms h ave been present for 2 days and indicates a pain score of Nonresponsive. MEDICAL/SURGICAL HISTORY: Non-responsive. Non-responsive. COMPARISON: [facility] – [place], CHEST 1V SINGLE AP, 02/27/2018. . FINDINGS: Portable AP view of the chest demonstrates a normal-sized cardiac silhouette. Lungs are underinflated and patient is mildly rotated. Tracheostomy and left chest wall [id number] remain present. Multip le EKG lines overlie the patient. Lungs are underinflated with mild bibasilar opacity, stable from th e prior study. Slight blunting the left costophrenic sulcus is stable. No pneumothorax is identified. CONCLUSION: Stable mild bibasilar airspace opacity which could represent subsegmental atelectasis or consolidatio n. Suspected trace left pleural fluid. Electronically signed by: Jacob Keith MD 02/28/2018 5:57 AM EDT
[2018-02-28 06:15] LABS: ABG Base Excess -0.3 mmol/L (-2-2); ABG PCO2 21 mmHg (38-42); ABG PO2 74 mmHG (61-120)
[2018-02-28] MEDS: Potassium Chlor 40 mEq Premix 40 MEQ/100 ML PIGGYBACK IV.SIG PRN ×2 (06:34→12:17)
[2018-02-28 07:18] LABS: Activated Partial Thrombo Time 21.2 sec (24.3-30.1); INR 1.2 Ratio; Prothrombin Time 11.9 sec (9.8-11.6)
[2018-02-28 07:32] LABS: Baso # (Auto) 0.1 th/mm3 (0.0-0.2); Baso % (Auto) 0.3 % (0.0-2.0); Eos # (Auto) 0.1 th/mm3 (0.0-0.4); Eos % (Auto) 0.3 % (0.0-4.0); Hematocrit 44.6 % (39.0-51.0); Hemoglobin 14.2 gm/dL (13.0-17.0); Lymph # (Auto) 3.3 th/mm3 (1.0-4.8); Lymph % (Auto) 11.4 % (9.0-44.0); Mean Corpuscular HGB Conc 31.9 % (32.0-36.0); Mean Corpuscular Hemoglobin 28.7 pg (27.0-34.0); Mean Corpuscular Volume 89.8 fL (80.0-100.0); Mean Platelet Volume 7.9 fL (7.0-11.0); Mono # (Auto) 1.2 th/mm3 (0.0-0.9); Mono % (Auto) 4.2 % (0.0-8.0); Neut # (Auto) 24.6 th/mm3 (1.8-7.7); Neut % (Auto) 83.8 % (16.0-70.0); Platelet Count 319 th/mm3 (150-450); Red Blood Count 4.97 mil/mm3 (4.50-5.90); Red Cell Distribution Width 19.5 % (11.6-17.2); White Blood Count 29.3 th/mm3 (4.0-11.0)
[2018-02-28 07:42] VITALS: RESP 12
[2018-02-28] MEDS: Famotidine PF Inj 20 MG/2 ML Vial IV.PUSH SCH ×2 (08:38→20:05)
[2018-02-28] MEDS: Chlorhexidine 0.12% Oral Kit 15 ML UDC OROPHARYNG SCH ×2 (08:38→20:05)
--- NOTE | 2018-02-28 11:29 | P.CONPAL ---
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 information was provided for any further questions or concerns. Family declined the need for integrated logistics programs director at this time. Will meet and review tomorrow. . Family Conference Location: Telephone Issues Discussed: * Palliative care role, purpose, approach * Additional medical, psychosocial, and spiritual history * Patients general health, functional status, and cognitive changes in the months leading up to the current hospitalization * Patient/family understanding of the current medical problems * Patient/family understanding of prognosis * Patients goals of care as best understood from advance directives and/or conversations and/or values * Current medical treatment options and benefits/burdens of those options * Likely scenarios comparing ongoing aggressive care with a transition to comfort measures only * Questions answered to the best of my ability * Palliative care contact information provided Assessment and Plan Pertinent Non-Medical Issues: Psychosocial: Spiritual: Legal: Ethical issues impacting care: Plan: PLAN: Legal decision maker: Patient is unresponsive, not capacitated to participate in decision-making and unlikely that he will ever recover this capacity. At this time, his daughter Virginia Shen would be the legal proxy decision-maker per [place] statutes. Goals: To be determined CODE STATUS: Full CODE by default SYMPTOMS: * Encephalopathy: Likely an anoxic injury per CT of the head which also showed a subarachnoid hemorrhage with extensive cerebral swelling and downward transtentorial herniation, extensive and Johnson's versus axonal injury. He was unresponsive for an unknown period of time which could extend up to 30 minutes per my discussion with the residential. Pupils are fixed and dilated with no response to painful stimuli. No sedating or neuromuscular blocking agents given during the event to account for unresponsiveness. * Pain: He has multiple risk factors for possible pain to include large sacral decubiti, invasive lines, bedbound status, extensive CPR. He is unable to make his needs known and is not withdrawing to painful stimuli. * Dyspnea: At this time he is mechanically ventilated and not breathing over the ventilator rate. It is unknown if he will breathe spontaneously without ventilator support. He has excessive thick respiratory secretions requiring frequent suctioning and an elevated white blood cell count of over 30. Pending family discussion to determine goals of care. 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 He received CPR with subsequent ROSC, but arrested again in the emergency room, again resuscitated. At this time he is unresponsive, pupils are fixed and dilated, found to have a subarachnoid hemorrhage with severe cerebral edema and transtentorial herniation. At this time there is not felt to be any chance of meaningful recovery. Pending arrival of the family for further decision-making. He would be hospice appropriate if goals were consistent. Palliative care will continue to follow the patient during hospital course as condition evolves, to assist patient/decision-maker with understanding of their medical conditions, weighing benefits/burdens of treatment options, for clarification of goals of treatment. Additionally will assist with any symptoms of palliative concern. . Appreciation Thank you for the opportunity to participate in the care of Alcon Shen. Attestation Attestation: To help prompt me to consider important information that might be impacting today's encounter and assessment, information from prior notes written by myself or my colleagues may have been "brought forward" into today's note. My signature on this note, however, is an attestation that I personally performed the exam, history, and/or decision-making noted today, and, unless otherwise indicated, the interactions with patient, family, and staff as well as the review of records all occurred today. I also attest that the listed assessment and stated plan reflect my best clinical judgment today based on the combination of historical information, prior notes, and today's exam/ interactions. When time spent is documented, it refers only to time spent today by the signer, or if indicated, combined time spent today by collaborating physician/nurse practitioner. .
[2018-02-28] MEDS: Norepinephrine Inj 4 MG in Sodium Chlor 0.9% Inj 246 ML IV.SIG PRN (11:58)
--- NOTE | 2018-02-28 12:35 | P.PNCC ---
Subjective Subjective Remarks/Hospital Course: This is a 57-year-old male with a history of C4 quadriplegia who sustained out of hospital cardiac arrest in his correction facility. ROSC was obtained and he was brought in where he had a second cardiac arrest when he arrived in the emergency department. Again ROSC was obtained. Patient received no sedating medication and no neuromuscular blockade, and in the emergency department his pupils are fixed and dilated he see his unresponsive. Initially he was on norepinephrine for shock, but is now off his medication. He has a lactate of 16. He has a white count of 30,000. He has evidence of shock liver , acute kidney injury. He has significant pyuria. He also has significant unstageable/stage IV decubitus ulcer on his sacrum. He has significant purulent secretions in his tracheostomy tube. We have tried multiple times to reach his daughter and medical decision maker, but neither of us nor his correction facility have been able to reach her. No additional information is available from the patient. Review systems is unobtainable. 02/28: Patient found to have severe anoxic brain injury, ICH, and transtentorial herniation on imaging yesterday evening. The patient remains unresponsive and has no brainstem reflexes. I had a long discussion with the patient's daughter, Catia, along with the palliative care BIOLOGICAL ENGINEER [place]. Catia says that while the patient had long-term C4 quadriplegia, he was working toward weaning from a ventilator and was still able to communicate and eat. She says that the patient would not want to be kept alive on a ventilator if he was not able to continue doing those things. I discussed two options with her, including pursuing a brain flow study vs comfort care. She would like to transition the patient to comfort care, but wants to contact family from out of state and will likely make this transition tomorrow. She also agrees that, given the patient's overall prognosis and multiple cardiac arrests already, if he were to arrest again, he would not want chest compressions or heroic measures performed. Objective Vital Signs / I&O: Vital Signs 02/27/18 13:29 02/27/18 13:33 02/27/18 13:40 Temperature Pulse Rate 0 L 64 Respiratory Rate 15 Blood Pressure Pulse Oximetry 100 02/27/18 13:45 02/27/18 13:48 02/27/18 13:58 Temperature Pulse Rate 53 L 53 L 52 L Respiratory Rate 20 Blood Pressure 92/40 L 92/46 L 105/55 L Pulse Oximetry 98 100 02/27/18 14:00 02/27/18 14:15 02/27/18 14:20 Temperature Pulse Rate 50 L 48 L 65 Respiratory Rate 24 16 14 Blood Pressure 108/51 L 111/54 L 101/50 L Pulse Oximetry 100 98 100 02/27/18 14:41 02/27/18 15:20 02/27/18 15:30 Temperature 96.6 F L Pulse Rate 68 70 70 Respiratory Rate 15 16 15 Blood Pressure 111/56 L 120/74 129/69 Pulse Oximetry 100 100 100 02/27/18 15:45 02/27/18 16:00 02/27/18 17:00 Temperature Pulse Rate 75 75 75 Respiratory Rate 15 15 15 Blood Pressure 150/70 H 137/79 137/104 H Pulse Oximetry 100 100 100 02/27/18 18:38 02/27/18 19:26 02/27/18 19:31 Temperature Pulse Rate 82 Respiratory Rate 18 18 17 Blood Pressure 122/77 Pulse Oximetry 100 100 100 02/27/18 20:49 02/27/18 21:00 02/27/18 22:00 Temperature 97.8 F Pulse Rate 80 72 Respiratory Rate 18 18 18 Blood Pressure 125/48 L 105/57 L Pulse Oximetry 100 100 02/27/18 23:00 02/28/18 00:00 02/28/18 00:41 Temperature 98.1 F Pulse Rate 76 75 Respiratory Rate 18 18 18 Blood Pressure 94/57 L 92/52 L Pulse Oximetry 100 100 100 02/28/18 01:00 02/28/18 02:00 02/28/18 03:00 Temperature 98 F Pulse Rate 78 81 83 Respiratory Rate 18 18 18 Blood Pressure 103/54 L 106/77 142/59 H Pulse Oximetry 100 100 100 02/28/18 04:00 02/28/18 04:05 02/28/18 05:00 Temperature Pulse Rate 85 82 82 Respiratory Rate 18 18 18 Blood Pressure 142/71 H 125/86 Pulse Oximetry 100 100 100 02/28/18 06:00 02/28/18 07:39 02/28/18 07:44 Temperature 98.2 F Pulse Rate 83 87 Respiratory Rate 18 12 12 Blood Pressure 112/73 Pulse Oximetry 100 100 02/28/18 08:00 02/28/18 10:00 Temperature 98.4 F Pulse Rate 90 91 H Respiratory Rate 12 Blood Pressure 127/90 Pulse Oximetry 99 Intake & Output 02/27/18 02/28/18 02/28/18 18:59 06:59 18:59 Intake Total 1350 / 1350 703.5 / 703.5 450 / 450 Output Total 1350 / 1350 Balance 1350 / 1350 -646.5 / -646.5 450 / 450 Weight 65.029 kg Intake: IV 1350 / 1350 703.5 / 703.5 450 / 450 Levophed Inj 4 MG In NS Inj 246 246 / 246 250 / 250 ML @ 2 MCG/MIN 7.5 mls/hr IV. SIG TITRATE PRN Rx#:[id number] Zosyn 4.5 GM Premix 4.5 gm In 100 / 100 200 / 200 100 / 100 100 ml @ 200 mls/hr IV.SIG Q6H HENRIK Rx#:[id number] KCl 40 mEq Premix Inj 40 meq In 100 / 100 100 ml @ 25 mls/hr IV.SIG Q2H PRN Rx#:[id number] NS Inj 1,000 ML @ Wide Open IV. 1000 / 1000 SIG BOLUS HENRIK Rx#:[id number] Vancomycin Inj 1,000 MG In NS 250 / 250 Inj 250 ML @ 250 mls/hr IV.SIG ONCE ONE Rx#:[id number] Vancomycin Inj 750 MG In NS Inj 257.5 / 257.5 250 ML @ 250 mls/hr IV.SIG Q12H HENRIK Rx#:[id number] Output: Stool 400 / 400 Urine Amount (Catheter) 800 / 800 Suprapubic 800 / 800 Urine Amount (Stoma) 150 / 150 Nephrostomy Tube 150 / 150 Other: Date of Last Bowel Movement 02/27/18 02/27/18 Result Diagrams: 02/28/18 06:42 02/28/18 03:30 Objective Remarks: GEN: Ill-appearing male, appears older than stated age HEENT: Pupils 6 mm, fixed, and non-reactive. Tracheostomy in place. CARDIO: Regular rate and rhythm PULM: Mechanical breath sounds bilaterally ABD: Soft, non-distended EXT: Contracted extremities, muscular atrophy NEURO: GCS 3T, no corneal reflex, no cough or gag, does not breath over set rate on ventilator Assessment and Plan - Assessment and Plan Plan: Assessment: 57-year-old male with prior C4 quadriplegia who presents out of prolonged out of hospital cardiac arrest with devastating neurological sequela ( severe anoxic brain injury, ICH, transtentorial herniation). Palliative care has been consulted and we were able to have a long discussion with the patient' s daughter and other family members. Plan: The patient's code status has been changed to DNR in accordance with his wishes Emotional support was provided to the family; I offered to contact the hospital primer inserting machine operator but they declined I expressed that our team is available 24 hours a day and encouraged them to contact us with any questions or concerns The patient will be kept on all current IV drips but no escalation of care or further imaging/ lab studies will be performed The patient will be transitioned to comfort care tomorrow when the family is gathered and ready
[2018-02-28 12:38] LABS: Lymphocytes 7 % (9-44); Monocytes 3 % (0-8); Myelocytes 1 % (0-0)
[2018-02-28 12:40] LABS: Platelet Estimate Normal (Normal); Platelet Morphology Normal (Normal); Polychromasia 2.2 % (0.0-1.9)
--- NOTE | 2018-02-28 13:17 | ECG ---
Date Performed: 02/27/2018 Time Performed: 13:45:36 PTAGE: 57 years EKG: UNCERTAIN IRREGULAR RHYTHM INTRAVENTRICULAR CONDUCTION DELAY INFERIOR MYOCARDIAL INFARCTION Old anteroseptal myocardial infarction Inferior ST elevation and acute myocardial infarction cannot be excluded Marked baseline artifact with no prior for comparion. A repeat tracing is strongly recomm ended for more accurate interpretation. ABNORMAL ECG NO PREVIOUS TRACING DOCTOR: Emily Santo Interpretating Date/Time 02/28/2018 13:16:28
[2018-02-28 13:29] LABS: ABG Base Excess 0.2 mmol/L (-2-2); ABG PCO2 42 mmHg (38-42); ABG PO2 97 mmHG (61-120)
[2018-02-28] MEDS: Sodium Chloride 0.45 % Inj 1,000 ML IV.CONT SCH (15:27)
[2018-03-01] MEDS: Oral Hygiene Kit OROPHARYNG SCH ×2 (00:08→03:25)
[2018-03-01] MEDS: Sodium Chloride 0.45 % Inj 1,000 ML IV.CONT SCH (03:05)
[2018-03-01] MEDS: Chlorhexidine Gluconate 2% 1 Pack (2 Cloths) TOPICAL SCH (03:25)
[2018-03-01] MEDS: Famotidine PF Inj 20 MG/2 ML Vial IV.PUSH SCH (08:32)
[2018-03-01] MEDS: Chlorhexidine 0.12% Oral Kit 15 ML UDC OROPHARYNG SCH (08:32)
[2018-03-01 08:50] VITALS: TEMP 99.9
--- NOTE | 2018-03-01 12:31 | P.PNPAL ---
Reason for Visit Reason for visit: a. To assist with evaluation and management of symptoms including: Encephalopathy, pain, dyspnea b. To assist medical decision maker(s) with: better understanding of current medical conditions; weighing benefits/burdens of medical treatment options; making medical treatment decisions. Subjective Subjective/Interval History: Patient seen today for medically necessary visit to evaluate symptom management of encephalopathy and dyspnea, as well as assist family in goals of medical care. This is a 57 year old quadriplegic male admitted from [facility] 02/27 with cardiac arrest. 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 His daughter was contacted yesterday and indicated that she preferred withdrawal of life support over proceeding with further scans to determine brain , as she understood that her father was likely not going to have any meaningful recovery from this and that it was not his wish to persist in such a state. All brainstem reflexes are absent at this time. He remains on mechanical ventilator, via chronic trach, with no spontaneous respirations over the vent rate. Heart rhythm this morning remained sinus tachycardia with intermittent paroxysmal SVT bursts, however is now tachycardic in the 200 range, irregular, narrow complex with occasional ventricular ectopy. Plan is for compassionate withdrawal later this afternoon when family from [place] arrives. . Family/Friend Interactions: Met with patient's daughter and sister bedside and was requested by daughter to review his clinical course with the patient's sister, as had been done with the daughter and her the previous day. We went to the conference room and clinical course leading up to today was explained to the patient's sister. We were joined by Dr. Cho, the attending property management intern and continued to review the option tween proceeding with testing for brain versus compassionate withdrawal of ventilator support. Catia ([place]), stated that it was still her intention not to subject him to any further testing but to proceed with compassionate withdrawal. After reviewing all questions and clinical data, the patient's sister agreed with her in this decision. Anticipatory guidance was provided regarding upcoming events. Family requested to wait until 8 PM to allow for arrival of patient's stepdaughter. We did review the possibility that he would not live until that time without additional interventions, which the family declined and said they did not want. So it was determined to continue ventilator support and IV fluid until the arrival of the patient's stepdaughter, planned for 8 PM today and then proceed with compassionate withdrawal of life support, with the understanding that if the patient continued to decline and passed naturally, that no aggressive interventions would be undertaken to sandra that course. These intentions were reviewed with the RN, Lane, with a request for a comfort cart for family. Privately I also reviewed the conversation and planned interventions with Dr. Cho, who stated her agreement with the orders as I had reviewed with the family. . Advance Directives Living Will: Never completed Health Care Surrogate: Never completed Durable Power of Emulsion Operator: Never completed Objective Vital Signs: Vital Signs 02/28/18 12:30 02/28/18 14:00 02/28/18 16:00 Temperature 99.8 F H Pulse Rate 108 H 113 H Respiratory Rate 12 12 Blood Pressure 107/59 L Pulse Oximetry 99 99 02/28/18 16:56 02/28/18 16:58 02/28/18 18:00 Temperature Pulse Rate 113 H 113 H Respiratory Rate 12 12 Blood Pressure Pulse Oximetry 98 02/28/18 20:00 02/28/18 20:18 02/28/18 22:00 Temperature 99.7 F H Pulse Rate 114 H 113 H 115 H Respiratory Rate 12 12 12 Blood Pressure 100/68 Pulse Oximetry 99 97 02/28/18 23:52 03/01/18 00:00 03/01/18 02:00 Temperature 99.9 F H Pulse Rate 115 H 112 H Respiratory Rate 12 12 Blood Pressure 91/59 L Pulse Oximetry 99 99 03/01/18 03:20 03/01/18 04:00 03/01/18 04:06 Temperature 99.8 F H Pulse Rate 111 H 118 H Respiratory Rate 12 12 12 Blood Pressure 126/66 Pulse Oximetry 99 98 03/01/18 06:00 03/01/18 08:00 03/01/18 08:21 Temperature 99.9 F H Pulse Rate 117 H 118 H 117 H Respiratory Rate 12 12 Blood Pressure 97/64 L Pulse Oximetry 97 98 03/01/18 10:00 03/01/18 11:39 03/01/18 12:00 Temperature Pulse Rate 113 H 196 H Respiratory Rate 12 12 Blood Pressure 80/51 L Pulse Oximetry 98 99 Intake & Output 02/28/18 03/01/18 03/01/18 18:59 06:59 18:59 Intake Total 550 / 550 1000 / 1000 Output Total 1360 / 1360 1105 / 1105 Balance -810 / -810 -105 / -105 Intake: IV 550 / 550 1000 / 1000 1/2 Normal Saline Inj 1,000 ML 1000 / 1000 @ 84 mls/hr IV.CONT .[id number] [facility] Rx#:[id number] Levophed Inj 4 MG In NS Inj 246 250 / 250 ML @ 2 MCG/MIN 7.5 mls/hr IV. SIG TITRATE PRN Rx#:[id number] Zosyn 4.5 GM Premix 4.5 gm In 100 / 100 100 ml @ 200 mls/hr IV.SIG Q6H [facility] Rx#:[id number] KCl 40 mEq Premix Inj 40 meq In 200 / 200 100 ml @ 25 mls/hr IV.SIG Q2H PRN Rx#:[id number] Output: Stool 5 / 5 Urine Amount (Catheter) 1200 / 1200 1000 / 1000 Suprapubic 1200 / 1200 1000 / 1000 Urine Amount (Stoma) 60 / 60 100 / 100 Nephrostomy Tube 60 / 60 100 / 100 Stool Amount (Stoma) 100 / 100 Right Upper Abdomen 100 / 100 Other: Date of Last Bowel Movement 02/28/18 02/28/18 02/28/18 Physical Exam: CONSTITUTIONAL/GENERAL: This is a frail, middle-aged male, unresponsive in bed, no acute distress. TUBES/LINES/DRAINS: Tracheostomy, PEG tube, right femoral central line, Suprapubic catheter, colostomy SKIN: No jaundice, rashes, or lesions. Large sacral decubitus. Skin temperature cool. Not diaphoretic. HEAD: Atraumatic. Normocephalic. EYES: Pupils equal and round 5-6 mm nonreactive, fixed, dilated. ENT: Nose without bleeding or purulent drainage. Throat without visible erythema , exudates, masses, or lesions. NECK: Midline tracheostomy CARDIOVASCULAR: Irregular rhythm, tachycardic rate, no rub murmur or gallop can be auscultated. RESPIRATORY/CHEST: Mechanically ventilated, PRVC mode, thick vela secretions. GASTROINTESTINAL: Abdomen soft, nondistended. Intact PEG tube, suprapubic catheter, colostomy. GENITOURINARY: Without palpable bladder distension. Suprapubic catheter in place draining sedimented urine, nephrostomy tube to right posterior. MUSCULOSKELETAL: Extremities without cyanosis, or edema. No mottling or clubbing. Contractures of both upper and lower extremities NEUROLOGICAL: Unresponsive, no withdrawal to painful stimuli, negative cough, gag, corneal reflexes. PSYCHIATRIC: Unresponsive. . Diagnostic Tests Laboratory: Laboratory Results - last 72 hr 02/27/18 02/27/18 02/27/18 13:44 13:44 13:44 WBC 30.6 H RBC 4.09 L Hgb 11.6 L Hct 40.7 MCV 99.5 MCH 28.4 MCHC 28.6 L RDW 19.2 H Plt Count 304 MPV 8.0 Prelim Diff (Auto) Slide review pending Neut % (Auto) 67.3 Lymph % (Auto) 30.2 [place] % (Auto) 1.8 Eos % (Auto) 0.5 Baso % (Auto) 0.2 Neut # (Auto) 20.6 H Lymph # (Auto) 9.2 H [place] # (Auto) 0.5 Eos # (Auto) 0.1 Baso # (Auto) 0.1 WBC Differential Manual diff final Seg Neuts % (Manual) 57 Band Neuts % (Manual) 12 H Lymphocytes % (Manual) 21 Monocytes % (Manual) 1 Metamyelocytes % (Man) 3 H Myelocytes % (Man) 6 H Abs Neuts (Manual) 23.9 H Nucleated RBCs/100 WBC 1 H Differential Comment . Platelet Estimate Normal Platelet Morphology Normal Polychromasia Spherocytes Occ H Ovalocytes 1+ H PT 11.8 H INR 1.2 APTT 32.7 H Puncture Site Patient Temperature O2 Saturation ABG pH ABG pCO2 ABG pO2 ABG HCO3 ABG O2 Content ABG Base Excess ABG Methemoglobin Moises Test Hemoglobin Carboxyhemoglobin O2 Delivery Device Liter Flow Vent Setting Inspired O2 Critical Value Sodium 146 H Potassium 4.9 Chloride 103 Carbon Dioxide 17.8 L Anion Gap 25 H BUN 18 Creatinine 1.03 Estimated GFR 74 L POC Glucose Random Glucose 249 H Lactic Acid Calcium 8.7 Phosphorus 9.9 H Magnesium 2.5 Total Bilirubin 0.5 AST 1555 H ALT 908 H Alkaline Phosphatase 199 H Ammonia Total Creatine Kinase 132 CK-MB (CK-2) 3.8 H Troponin I 0.27 H Total Protein 6.4 Albumin 2.1 L Lipase 176 Urine Color Urine Clarity Urine pH Ur Specific [place] Urine Protein Urine Glucose (UA) Urine Ketones Urine Occult Blood Urine Nitrate Urine Bilirubin Urine Urobilinogen Ur Leukocyte Esterase Urine RBC Urine WBC Urine WBC Clumps Ur Squamous Epith Cells Urine Bacteria Hyaline Casts Urine Mucus Ur Microscopic Review Nasal Screen MRSA (PCR) 02/27/18 02/27/18 02/27/18 13:57 14:23 16:55 WBC RBC Hgb Hct MCV MCH MCHC RDW Plt Count MPV Prelim Diff (Auto) Neut % (Auto) Lymph % (Auto) [place] % (Auto) Eos % (Auto) Baso % (Auto) Neut # (Auto) Lymph # (Auto) [place] # (Auto) Eos # (Auto) Baso # (Auto) WBC Differential Seg Neuts % (Manual) Band Neuts % (Manual) Lymphocytes % (Manual) Monocytes % (Manual) Metamyelocytes % (Man) Myelocytes % (Man) Abs Neuts (Manual) Nucleated RBCs/100 WBC Differential Comment Platelet Estimate Platelet Morphology Polychromasia Spherocytes Ovalocytes PT INR APTT Puncture Site Patient Temperature O2 Saturation ABG pH ABG pCO2 ABG pO2 ABG HCO3 ABG O2 Content ABG Base Excess ABG Methemoglobin Moises Test Hemoglobin Carboxyhemoglobin O2 Delivery Device Liter Flow Vent Setting Inspired O2 Critical Value Sodium Potassium Chloride Carbon Dioxide Anion Gap BUN Creatinine Estimated GFR POC Glucose 256 H Random Glucose Lactic Acid 16.4 H* Calcium Phosphorus Magnesium Total Bilirubin AST ALT Alkaline Phosphatase Ammonia Total Creatine Kinase CK-MB (CK-2) Troponin I Total Protein Albumin Lipase Urine Color [place] H Urine Clarity Cloudy H Urine pH 7.5 Ur Specific [place] 1.010 Urine Protein 300 or greater H Urine Glucose (UA) Negative Urine Ketones Negative Urine Occult Blood Large H Urine Nitrate Positive H Urine Bilirubin Negative Urine Urobilinogen 0.2 Ur Leukocyte Esterase Large H Urine RBC Urine WBC Urine WBC Clumps Many H Ur Squamous Epith Cells 148 Urine Bacteria Many H Hyaline Casts 116 Urine Mucus Many H Ur Microscopic Review Not Reportable Nasal Screen MRSA (PCR) 02/27/18 02/27/18 02/27/18 17:07 17:30 20:45 WBC RBC Hgb Hct MCV MCH MCHC RDW Plt Count MPV Prelim Diff (Auto) Neut % (Auto) Lymph % (Auto) [place] % (Auto) Eos % (Auto) Baso % (Auto) Neut # (Auto) Lymph # (Auto) [place] # (Auto) Eos # (Auto) Baso # (Auto) WBC Differential Seg Neuts % (Manual) Band Neuts % (Manual) Lymphocytes % (Manual) Monocytes % (Manual) Metamyelocytes % (Man) Myelocytes % (Man) Abs Neuts (Manual) Nucleated RBCs/100 WBC Differential Comment Platelet Estimate Platelet Morphology Polychromasia Spherocytes Ovalocytes PT INR APTT Puncture Site Not Reportable Patient Temperature 98.6 O2 Saturation 98 ABG pH 7.24 L* ABG pCO2 52 H* ABG pO2 439 H ABG HCO3 21 L ABG O2 Content 18.7 ABG Base Excess -4.9 L ABG Methemoglobin 0.6 Moises Test Hemoglobin 12.8 Carboxyhemoglobin 1.6 O2 Delivery Device Vent Liter Flow Vent Setting Ac/15/500/10/100 Inspired O2 100 Critical Value Yes Sodium Potassium Chloride Carbon Dioxide Anion Gap BUN Creatinine Estimated GFR POC Glucose Random Glucose Lactic Acid 6.8 H* Calcium Phosphorus Magnesium Total Bilirubin AST ALT Alkaline Phosphatase Ammonia Total Creatine Kinase CK-MB (CK-2) Troponin I Total Protein Albumin Lipase Urine Color Urine Clarity Urine pH Ur Specific [place] Urine Protein Urine Glucose (UA) Urine Ketones Urine Occult Blood Urine Nitrate Urine Bilirubin Urine Urobilinogen Ur Leukocyte Esterase Urine RBC Urine WBC Urine WBC Clumps Ur Squamous Epith Cells Urine Bacteria Hyaline Casts Urine Mucus Ur Microscopic Review Nasal Screen MRSA (PCR) Not detected 02/27/18 02/27/18 02/28/18 21:39 21:39 01:03 WBC RBC Hgb Hct MCV MCH MCHC RDW Plt Count MPV Prelim Diff (Auto) Neut % (Auto) Lymph % (Auto) [place] % (Auto) Eos % (Auto) Baso % (Auto) Neut # (Auto) Lymph # (Auto) [place] # (Auto) Eos # (Auto) Baso # (Auto) WBC Differential Seg Neuts % (Manual) Band Neuts % (Manual) Lymphocytes % (Manual) Monocytes % (Manual) Metamyelocytes % (Man) Myelocytes % (Man) Abs Neuts (Manual) Nucleated RBCs/100 WBC Differential Comment Platelet Estimate Platelet Morphology Polychromasia Spherocytes Ovalocytes PT INR APTT Puncture Site Patient Temperature O2 Saturation ABG pH ABG pCO2 ABG pO2 ABG HCO3 ABG O2 Content ABG Base Excess ABG Methemoglobin Moises Test Hemoglobin Carboxyhemoglobin O2 Delivery Device Liter Flow Vent Setting Inspired O2 Critical Value Sodium Potassium Chloride Carbon Dioxide Anion Gap BUN Creatinine Estimated GFR POC Glucose Random Glucose Lactic Acid 3.2 H Calcium Phosphorus Magnesium Total Bilirubin AST ALT Alkaline Phosphatase Ammonia 29 Total Creatine Kinase CK-MB (CK-2) Troponin I 5.30 H* Total Protein Albumin Lipase Urine Color Urine Clarity Urine pH Ur Specific [place] Urine Protein Urine Glucose (UA) Urine Ketones Urine Occult Blood Urine Nitrate Urine Bilirubin Urine Urobilinogen Ur Leukocyte Esterase Urine RBC Urine WBC Urine WBC Clumps Ur Squamous Epith Cells Urine Bacteria Hyaline Casts Urine Mucus Ur Microscopic Review Nasal Screen MRSA (PCR) 02/28/18 02/28/18 02/28/18 03:30 05:56 06:42 WBC 29.3 H RBC 4.97 Hgb 14.2 D Hct 44.6 MCV 89.8 D MCH 28.7 MCHC 31.9 L RDW 19.5 H Plt Count 319 MPV 7.9 Prelim Diff (Auto) Slide review pending Neut % (Auto) 83.8 H Lymph % (Auto) 11.4 [place] % (Auto) 4.2 Eos % (Auto) 0.3 Baso % (Auto) 0.3 Neut # (Auto) 24.6 H Lymph # (Auto) 3.3 [place] # (Auto) 1.2 H Eos # (Auto) 0.1 Baso # (Auto) 0.1 WBC Differential Manual diff final Seg Neuts % (Manual) 73 H Band Neuts % (Manual) 16 H Lymphocytes % (Manual) 7 L Monocytes % (Manual) 3 Metamyelocytes % (Man) Myelocytes % (Man) 1 H Abs Neuts (Manual) 26.4 H Nucleated RBCs/100 WBC Differential Comment . Platelet Estimate Normal Platelet Morphology Normal Polychromasia 2.2 H Spherocytes Ovalocytes PT INR APTT Puncture Site Right radial Patient Temperature 98.6 O2 Saturation 96 ABG pH 7.61 H* ABG pCO2 21 L* ABG pO2 74 ABG HCO3 21 L ABG O2 Content 16.7 ABG Base Excess -0.3 ABG Methemoglobin 0.7 Moises Test Present Hemoglobin 12.5 Carboxyhemoglobin 1.8 O2 Delivery Device Ventilator Liter Flow Vent Setting See comments Inspired O2 50 Critical Value Yes Sodium 150 H Potassium 3.2 L D Chloride 109 H Carbon Dioxide 28.5 D Anion Gap 13 BUN 27 H Creatinine 0.87 Estimated GFR Greater than 89 POC Glucose Random Glucose 147 H D Lactic Acid Calcium 8.3 L Phosphorus 2.4 L D Magnesium 1.7 D Total Bilirubin 0.9 AST 883 H ALT 978 H Alkaline Phosphatase 163 H Ammonia Total Creatine Kinase CK-MB (CK-2) Troponin I 6.12 H* Total Protein 6.2 L Albumin 2.2 L Lipase Urine Color Urine Clarity Urine pH Ur Specific [place] Urine Protein Urine Glucose (UA) Urine Ketones Urine Occult Blood Urine Nitrate Urine Bilirubin Urine Urobilinogen Ur Leukocyte Esterase Urine RBC Urine WBC Urine WBC Clumps Ur Squamous Epith Cells Urine Bacteria Hyaline Casts Urine Mucus Ur Microscopic Review Nasal Screen MRSA (PCR) 02/28/18 02/28/18 02/28/18 06:42 06:44 12:37 WBC RBC Hgb Hct MCV MCH MCHC RDW Plt Count MPV Prelim Diff (Auto) Neut % (Auto) Lymph % (Auto) [place] % (Auto) Eos % (Auto) Baso % (Auto) Neut # (Auto) Lymph # (Auto) [place] # (Auto) Eos # (Auto) Baso # (Auto) WBC Differential Seg Neuts % (Manual) Band Neuts % (Manual) Lymphocytes % (Manual) Monocytes % (Manual) Metamyelocytes % (Man) Myelocytes % (Man) Abs Neuts (Manual) Nucleated RBCs/100 WBC Differential Comment Platelet Estimate Platelet Morphology Polychromasia Spherocytes Ovalocytes PT 11.9 H INR 1.2 APTT 21.2 L D Puncture Site Patient Temperature O2 Saturation ABG pH ABG pCO2 ABG pO2 ABG HCO3 ABG O2 Content ABG Base Excess ABG Methemoglobin Moises Test Hemoglobin Carboxyhemoglobin O2 Delivery Device Liter Flow Vent Setting Inspired O2 Critical Value Sodium Potassium Chloride Carbon Dioxide Anion Gap BUN Creatinine Estimated GFR POC Glucose 162 H Random Glucose Lactic Acid 2.5 H Calcium Phosphorus Magnesium Total Bilirubin AST ALT Alkaline Phosphatase Ammonia Total Creatine Kinase CK-MB (CK-2) Troponin I Total Protein Albumin Lipase Urine Color Urine Clarity Urine pH Ur Specific [place] Urine Protein Urine Glucose (UA) Urine Ketones Urine Occult Blood Urine Nitrate Urine Bilirubin Urine Urobilinogen Ur Leukocyte Esterase Urine RBC Urine WBC Urine WBC Clumps Ur Squamous Epith Cells Urine Bacteria Hyaline Casts Urine Mucus Ur Microscopic Review Nasal Screen MRSA (PCR) 02/28/18 13:09 WBC RBC Hgb Hct MCV MCH MCHC RDW Plt Count MPV Prelim Diff (Auto) Neut % (Auto) Lymph % (Auto) [place] % (Auto) Eos % (Auto) Baso % (Auto) Neut # (Auto) Lymph # (Auto) [place] # (Auto) Eos # (Auto) Baso # (Auto) WBC Differential Seg Neuts % (Manual) Band Neuts % (Manual) Lymphocytes % (Manual) Monocytes % (Manual) Metamyelocytes % (Man) Myelocytes % (Man) Abs Neuts (Manual) Nucleated RBCs/100 WBC Differential Comment Platelet Estimate Platelet Morphology Polychromasia Spherocytes Ovalocytes PT INR APTT Puncture Site Right radial Patient Temperature 98.6 O2 Saturation 95 ABG pH 7.39 ABG pCO2 42 ABG pO2 97 ABG HCO3 25 ABG O2 Content 19.0 ABG Base Excess 0.2 ABG Methemoglobin 1.3 Moises Test Present Hemoglobin 14.2 Carboxyhemoglobin 1.6 O2 Delivery Device Ventilator Liter Flow Assistant Passenger Locomotive Engineer Vent Setting See comments Inspired O2 40 Critical Value No Sodium Potassium Chloride Carbon Dioxide Anion Gap BUN Creatinine Estimated GFR POC Glucose Random Glucose Lactic Acid Calcium Phosphorus Magnesium Total Bilirubin AST ALT Alkaline Phosphatase Ammonia Total Creatine Kinase CK-MB (CK-2) Troponin I Total Protein Albumin Lipase Urine Color Urine Clarity Urine pH Ur Specific [place] Urine Protein Urine Glucose (UA) Urine Ketones Urine Occult Blood Urine Nitrate Urine Bilirubin Urine Urobilinogen Ur Leukocyte Esterase Urine RBC Urine WBC Urine WBC Clumps Ur Squamous Epith Cells Urine Bacteria Hyaline Casts Urine Mucus Ur Microscopic Review Nasal Screen MRSA (PCR) Result Diagrams: 02/28/18 06:42 02/28/18 03:30 Microbiology: Microbiology 02/27/18 13:50 Aerobic Blood Culture - Preliminary Blood - Peripheral gram positive cocci Anaerobic Blood Culture - Preliminary Staphylococcus epidermidis gram negative rods 02/27/18 13:45 Aerobic Blood Culture - Preliminary Blood - Peripheral gram positive cocci Anaerobic Blood Culture - Preliminary gram negative rods Imaging: Chest X-Ray 02/27/18 13:43 CONCLUSION: Possible pulmonary edema. Head CT 02/27/18 17:10 CONCLUSION: 1. Very abnormal exam with subarachnoid hemorrhage extensive cerebral swelling and downward transtentorial herniation possibility of extensive anoxic insult to the brain or diffuse axonal injury should both be entertained. Findings were discussed with Dr. Mariano at the time of this dictation. . Chest X-Ray 02/28/18 05:00 CONCLUSION: Stable mild bibasilar airspace opacity which could represent subsegmental atelectasis or consolidation. Suspected trace left pleural fluid. Procedures: 02/27: Right femoral central line placement . Assessment and Plan Pertinent Non-Medical Issues: Psychosocial: Spiritual: Legal: Ethical issues impacting care: Code Status: No Code DNR Plan: PLAN: Legal decision maker: Patient is unresponsive, not capacitated to participate in decision-making and unlikely that he will ever recover this capacity. At this time, his daughter Virginia Shen would be the legal proxy decision-maker per [place] statutes. Goals: To be determined CODE STATUS: Full CODE by default SYMPTOMS: * Encephalopathy: Likely an anoxic injury per CT of the head which also showed a subarachnoid hemorrhage with extensive cerebral swelling and downward transtentorial herniation, extensive and anoxic versus axonal injury. He was unresponsive for an unknown period of time which could extend up to 30 minutes per my discussion with the group home. Pupils are fixed and dilated with no response to painful stimuli. No sedating or neuromuscular blocking agents given during the event to account for unresponsiveness. No brainstem reflexes present. * Dyspnea: At this time he is mechanically ventilated and not breathing over the ventilator rate. It is unknown if he will breathe spontaneously without ventilator support. He has excessive thick respiratory secretions requiring frequent suctioning and an elevated white blood cell count of over 30. Family planning compassionate withdrawal of life support once [id number] family arrives today. Palliative care will continue to follow the patient during hospital course as condition evolves, to assist patient/decision-maker with understanding of their medical conditions, weighing benefits/burdens of treatment options, for clarification of goals of treatment. Additionally will assist with any symptoms of palliative concern. . Attestation Attestation: To help prompt me to consider important information that might be impacting today's encounter and assessment, information from prior notes written by myself or my colleagues may have been "brought forward" into today's note. My signature on this note, however, is an attestation that I personally performed the exam, history, and/or decision-making noted today, and, unless otherwise indicated, the interactions with patient, family, and staff as well as the review of records all occurred today. I also attest that the listed assessment and stated plan reflect my best clinical judgment today based on the combination of historical information, prior notes, and today's exam/ interactions. When time spent is documented, it refers only to time spent today by the signer, or if indicated, combined time spent today by collaborating physician/nurse practitioner. .
[2018-03-01] MEDS ORDERED: Hyoscyamine Inj 0.5 MG/ML Ampul IV.PUSH PRN (13:42)
[2018-03-01] MEDS ORDERED: Hyoscyamine Inj 0.5 MG/ML Ampul IV.PUSH ONE (14:00)
[2018-03-01] MEDS ORDERED: Morphine Sulfate Inj 8 MG/ML Vial IV.PUSH ONE (14:00)
--- NOTE | 2018-03-01 14:08 | P.PNCC ---
Subjective Subjective Remarks/Hospital Course: This is a 57-year-old male with a history of C4 quadriplegia who sustained out of hospital cardiac arrest in his custodial facility. ROSC was obtained and he was brought in where he had a second cardiac arrest when he arrived in the emergency department. Again ROSC was obtained. Patient received no sedating medication and no neuromuscular blockade, and in the emergency department his pupils are fixed and dilated he see his unresponsive. Initially he was on norepinephrine for shock, but is now off his medication. He has a lactate of 16. He has a white count of 30,000. He has evidence of shock liver , acute kidney injury. He has significant pyuria. He also has significant unstageable/stage IV decubitus ulcer on his sacrum. He has significant purulent secretions in his tracheostomy tube. We have tried multiple times to reach his daughter and medical decision maker, but neither of us nor his custodial facility have been able to reach her. No additional information is available from the patient. Review systems is unobtainable. 02/28: Patient found to have severe anoxic brain injury, ICH, and transtentorial herniation on imaging yesterday evening. The patient remains unresponsive and has no brainstem reflexes. I had a long discussion with the patient's daughter, Catia, along with the palliative care MANAGER RADIO Aurora. Catia says that while the patient had long-term C4 quadriplegia, he was working toward weaning from a ventilator and was still able to communicate and eat. She says that the patient would not want to be kept alive on a ventilator if he was not able to continue doing those things. I discussed two options with her, including pursuing a brain flow study vs comfort care. She would like to transition the patient to comfort care, but wants to contact family from out of state and will likely make this transition tomorrow. She also agrees that, given the patient's overall prognosis and multiple cardiac arrests already, if he were to arrest again, he would not want chest compressions or heroic measures performed. 03/01: I again met with the patient's daughter, his sister, and Aurora from palliative care. His daughter wishes to transition the patient to comfort measures only this evening when her step-sister arrives (around 8 PM). We agreed that we would not escalate care in the interim. Objective Vital Signs / I&O: Vital Signs 02/28/18 16:00 02/28/18 16:56 02/28/18 16:58 Temperature 99.8 F H Pulse Rate 113 H 113 H Respiratory Rate 12 12 12 Blood Pressure 107/59 L Pulse Oximetry 99 98 02/28/18 18:00 02/28/18 20:00 02/28/18 20:18 Temperature 99.7 F H Pulse Rate 113 H 114 H 113 H Respiratory Rate 12 12 Blood Pressure 100/68 Pulse Oximetry 99 02/28/18 22:00 02/28/18 23:52 03/01/18 00:00 Temperature 99.9 F H Pulse Rate 115 H 115 H Respiratory Rate 12 12 12 Blood Pressure 91/59 L Pulse Oximetry 97 99 99 03/01/18 02:00 03/01/18 03:20 03/01/18 04:00 Temperature 99.8 F H Pulse Rate 112 H 111 H 118 H Respiratory Rate 12 12 Blood Pressure 126/66 Pulse Oximetry 99 03/01/18 04:06 03/01/18 06:00 03/01/18 08:00 Temperature 99.9 F H Pulse Rate 117 H 118 H Respiratory Rate 12 12 Blood Pressure 97/64 L Pulse Oximetry 98 97 03/01/18 08:21 03/01/18 10:00 03/01/18 11:39 Temperature Pulse Rate 117 H 113 H Respiratory Rate 12 12 Blood Pressure Pulse Oximetry 98 98 03/01/18 12:00 Temperature Pulse Rate 196 H Respiratory Rate 12 Blood Pressure 80/51 L Pulse Oximetry 99 Intake & Output 02/28/18 03/01/18 03/01/18 18:59 06:59 18:59 Intake Total 550 / 550 1000 / 1000 Output Total 1360 / 1360 1105 / 1105 Balance -810 / -810 -105 / -105 Intake: IV 550 / 550 1000 / 1000 1/2 Normal Saline Inj 1,000 ML 1000 / 1000 @ 84 mls/hr IV.CONT .[id number] HENRIK Rx#:[id number] Levophed Inj 4 MG In NS Inj 246 250 / 250 ML @ 2 MCG/MIN 7.5 mls/hr IV. SIG TITRATE PRN Rx#:[id number] Zosyn 4.5 GM Premix 4.5 gm In 100 / 100 100 ml @ 200 mls/hr IV.SIG Q6H HENRIK Rx#:[id number] KCl 40 mEq Premix Inj 40 meq In 200 / 200 100 ml @ 25 mls/hr IV.SIG Q2H PRN Rx#:[id number] Output: Stool 5 / 5 Urine Amount (Catheter) 1200 / 1200 1000 / 1000 Suprapubic 1200 / 1200 1000 / 1000 Urine Amount (Stoma) 60 / 60 100 / 100 Nephrostomy Tube 60 / 60 100 / 100 Stool Amount (Stoma) 100 / 100 Right Upper Abdomen 100 / 100 Other: Date of Last Bowel Movement 02/28/18 02/28/18 02/28/18 Result Diagrams: 02/28/18 06:42 02/28/18 03:30 Objective Remarks: GEN: Ill-appearing male, unresponsive HEENT: Pupils 6 mm, fixed, and non-reactive. Tracheostomy in place. CARDIO: Tachy to 180s-190s, regular PULM: Mechanical breath sounds bilaterally, no respiratory drive over set rate on vent ABD: Soft, non-distended EXT: Contracted extremities, muscular atrophy NEURO: GCS 3T, no corneal reflex, no cough or gag, does not breath over ventilator Assessment and Plan - Assessment and Plan Plan: Assessment: 57-year-old male with prior C4 quadriplegia who presents out of prolonged out of hospital cardiac arrest with devastating neurological sequela ( severe anoxic brain injury, ICH, transtentorial herniation). Plan: Transition to comfort care this evening when the family is ready In the interim, no escalation of care I spent no less than 30 minutes discussing the case with the palliative care service, the patient's daughter and sister, and with his RN. We reviewed specific comfort measures, expected clinic course, and all consents for transitioning to comfort care were reviewed and signed. Level 3
[2018-03-01] MEDS ORDERED: Morphine Inj 4 MG/ML Vial IV.PUSH ONE (14:30)
[2018-03-01] MEDS ORDERED: Acetaminophen 650 MG Supp RECTAL PRN (15:00)
[2018-03-01] MEDS ORDERED: Bisacodyl 10 MG Supp RECTAL PRN (15:00)
[2018-03-01] MEDS ORDERED: Morphine Inj 4 MG/ML Vial IV.PUSH SCH (15:00)
[2018-03-01] MEDS ORDERED: Morphine Sulfate Inj 8 MG/ML Vial IV.PUSH PRN (15:00)
[2018-03-01] MEDS ORDERED: Morphine Inj 4 MG/ML Vial IV.PUSH PRN ×2 (15:00→23:32)
[2018-03-01] MEDS ORDERED: Pharmacy Ordered Lab Info OTHER SCH (15:45)
[2018-03-02 02:01] VITALS: BP 85/51; PULSE 102; O2SAT 94
--- NOTE | 2018-04-04 12:35 | P.DN ---
Discharge Sum: Prov - Provider Primary care physician: Deric Varela DO Admitting clinician: Arturo Mariano Attending physician on admission: Arturo Mariano Consults: 02/27/18 17:24 Consult to Palliative Care Routine Consulting Provider: Crystal Chanel Reason for Consultation: goals of care Notified:: Service Spoke with:: ALLYSON Date Notified:: 02/27/18 Time Notified:: 17:42 Ordering Provider: MIGNON Pronouncing clinician: Judy Cho Discharge Sum: Diag - Admitting Diagnosis (1) Acute respiratory failure Status: Acute (2) Cardiac arrest Status: Acute (3) Sepsis Status: Acute Discharge Sum: Summary - Date and Time Date of admission: 02/27/18 16:18 Date of : 03/02/18 Time of : 00:45 - Summary Details: This is a 57-year-old male with a history of C4 quadriplegia who [facility] out [facility] his [facility]. ROSC was obtained and he was brought in where he had a second cardiac arrest when he arrived in the emergency department. Again ROSC was obtained. Patient received no sedating medication and no neuromuscular blockade, and in the emergency department his pupils are fixed and dilated he see his unresponsive. Initially he was on norepinephrine for shock, but is now off his medication. He has a lactate of 16. He has a white count of 30,000. He has evidence of shock liver , acute kidney injury. He has significant pyuria. He also has significant unstageable/stage IV decubitus ulcer on his sacrum. He has significant purulent secretions in his tracheostomy tube. We have tried multiple times to reach his daughter and medical decision maker, but neither of us nor his [facility] facility have been able to reach her. No additional information is available from the patient. Review systems is unobtainable. 02/28: Patient found to have severe anoxic brain injury, ICH, and transtentorial herniation on imaging yesterday evening. The patient remains unresponsive and has no brainstem reflexes. I had a long discussion with the patient's daughter, Catia, along with the palliative care JOGGLE PRESS OPERATOR Aurora. Catia says that while the patient had long-term C4 quadriplegia, he was working toward weaning from a ventilator and was still able to communicate and eat. She says that the patient would not want to be kept alive on a ventilator if he was not able to continue doing those things. I discussed two options with her, including pursuing a brain flow study vs comfort care. She would like to transition the patient to comfort care, but wants to contact family from out of state and will likely make this transition tomorrow. She also agrees that, given the patient's overall prognosis and multiple cardiac arrests already, if he were to arrest again, he would not want chest compressions or heroic measures performed. 03/01: I again met with the patient's daughter, his sister, and Aurora from palliative care. His daughter wishes to transition the patient to comfort measures only this evening when her step-sister arrives (around 8 PM). We agreed that we would not escalate care in the interim. The patient was transitioned to comfort care in the evening of 03/01/18 and was pronounced on 03/02/18 at 00:45. Brief History: This is a 57-year-old male with a history of C4 quadriplegia who sustained out of hospital cardiac arrest in his [facility]. ROSC was obtained and he was brought in where he had a second cardiac arrest when he arrived in the emergency department. Again ROSC was obtained. Patient received no sedating medication and no neuromuscular blockade, and in the emergency department his pupils are fixed and dilated he see his unresponsive. Initially he was on norepinephrine for shock, but is now off his medication. He has a lactate of 16. He has a white count of 30,000. He has evidence of shock liver , acute kidney injury. He has significant pyuria. He also has significant unstageable/stage IV decubitus ulcer on his sacrum. He has significant purulent secretions in his tracheostomy tube. We have tried multiple times to reach his daughter and medical decision maker, but neither of us nor his [facility] facility have been able to reach her. No additional information is available from the patient. Review systems is unobtainable. Result Diagrams: 02/28/18 06:42 02/28/18 03:30 - Additional Data Confirmation of as documented by pronouncing clinician: no pulse, no respirations, no heart sounds, pupils fixed and dilated Family: at bedside Attending/PCP notified?: Yes Was code activated?: No Autopsy requested?: No Advance directives: Yes (DNR) Hospice patient?: Yes (transitioned to comfort care by family)
== END 2018-03-02 00:45 | disposition expired ==
LOC: NEPC 13:28 → NEDA 16:18 → HIMC 20:25
PROVIDERS: ADMIT Internal Medicine Critical Care Medicine; ATTEND Internal Medicine Critical Care Medicine